=== PATIENT | male | born 2000 | race African-American/Black ===

== ENCOUNTER 2020-05-03 17:03 | Emergency (ER) | payer OTHER ==
[~2020-05-03] VITALS: Ht 172.7 cm; Wt 70.3 kg
[2020-05-03 17:46] VITALS: BP 131/67
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
[2020-05-03] MEDS ORDERED: ROBAXIN-500MG ORAL (18:15)
[2020-05-03] MEDS ORDERED: LIDODERM700 M1 TOPIC (18:15)
[2020-05-03] MEDS ORDERED: IBUPROFEN600 M1 ORAL (18:15)
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
[2020-05-03 18:30] VITALS: BP 131/67
--- NOTE | 2020-05-03 18:30 | NUR ---
ED Nurse Note: Pt cleared by health care Provider for discharge. DC instructions/prescription was given and explained to pt and verbalized understanding of teachings. All medical deviecs such as ID band removed. Pt is AAO x4, ambulatory and left with all personal belongings.
== END 2020-05-03 18:30 | disposition home or self-care (01) ==
LOC: EMR 17:55
DX: S00.83XA Contusion of other part of head, initial encounter (principal); S16.1XXA Strain of muscle, fascia and tendon at neck level, initial encounter; J45.909 Unspecified asthma, uncomplicated; V43.52XA Car driver injured in collision with other type car in traffic accident, initial encounter; Y92.411 Interstate highway as the place of occurrence of the external cause
CPT/HCPCS: 70450; 72125; Z7502; 99284